=== PATIENT | female | born 1945 | race Caucasian/White ===

== ENCOUNTER → 2018-11-30 | Outpatient (CLI) | payer OTHER | END | disposition home or self-care (01) | LOC: RD 10:04 | DX: R05 Cough (principal) ==

== ENCOUNTER 2019-06-20 21:02 | Emergency (ER) | payer OTHER, SELFPAY ==
[~2019-06-20] VITALS: Ht 157.5 cm; Wt 104.3 kg
[2019-06-20 21:19] VITALS: Ht 157.5 cm; Wt 104.3 kg
[2019-06-20 23:20] LABS: CALCIUM 9.2 mg/dL (8.5-10.1); CARBON DIOXIDE 25.7 mmol/L (21-32); CHLORIDE SERUM 104 mmol/L (98-107); CREATININE SERUM 0.7 mg/dL (0.6-1.0); GLUCOSE SERUM 113 mg/dL (74-106); POTASSIUM SERUM 3.9 mmol/L (3.5-5.1); SODIUM SERUM 140 mmol/L (136-145)
[2019-06-20 23:24] LABS: ALBUMIN 4.2 g/dL (3.4-5.0); ALKALINE PHOSPHATASE 87 U/L (46-116); ALT/SGPT 28 U/L (14-59); AST/SGOT 18 U/L (15-37); BILIRUBIN TOTAL 0.5 mg/dL (0.20-1.00); LACTIC DEHYDROGENASE (LDH) 143 U/L (100-190); TOTAL PROTEIN, SERUM 7.1 g/dL (6.4-8.2)
[2019-06-20 23:26] LABS: C REACTIVE PROTEIN 0.2 mg/dL (<=0.9)
[2019-06-20 23:33] LABS: BASOPHIL % 0.3 % (0-2); PLATELET COUNT 196 x10^3mcL (130-400); RED CELL DISTRIBUTION WIDTH 13.2 % (11.5-14.5)
[2019-06-21 00:54] VITALS: BP 131/62
== END 2019-06-21 00:54 | disposition home or self-care (01) ==
LOC: ED 21:02
PROVIDERS: Emergency Medicine
DX: R06.00 Dyspnea, unspecified (principal); R05 Cough; I10 Essential (primary) hypertension
CPT/HCPCS: 36415; 36600; 83880; 85378; Q0092